=== PATIENT | male | born 2000 | race Caucasian/White ===

== ENCOUNTER 2022-02-26 08:50 | Emergency (ER) | payer OTHER, SELFPAY ==
[2022-02-26 09:02] VITALS: BP 131/71; PULSE 63; RESP 14; TEMP 37.1; O2SAT 100; BMI 24.3
--- NOTE | 2022-02-26 09:03 | ED.BACK ---
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 He does not remember any injury or strenuous activity. He says that he did start a new job of standing gait where he has to wear a vest most of the time. He denies any numbness or tingling down his legs. He is no abdominal pain no hematuria nausea or vomiting. He has tried naproxen little relief home. But he says it hurts every time he moves it is difficult for him to put his socks and shoes on. It pretty much stays in his left flank area. He denies any fever or chills. No other symptoms. Related Data Previous Rx's Medication Instructions Recorded cyclobenzaprine 10 mg tablet 10 mg PO TID PRN muscle spasm #10 02/26/22 tabs hydrocodone 5 mg-acetaminophen 325 1 tab PO Q6H PRN pain #10 tabs 02/26/22 mg tablet Allergies Allergy/AdvReac Type Severity Reaction Status Date / Time No Known Drug Allergies Allergy Verified 02/26/22 09:02 Review of Systems Review of Systems ROS Unobtainable: All systems reviewed & are unremarkable except as noted in HPI and below Patient History Social History Smoking Status: Never smoker Exam Initial Vital Signs Initial Vital Signs: Vital Signs Temperature 98.8 F 02/26/22 09:02 Pulse Rate 63 02/26/22 09:02 Respiratory Rate 14 02/26/22 09:02 Blood Pressure 131/71 02/26/22 09:02 Pulse Oximetry 100 02/26/22 09:02 Oxygen Delivery Method 02/26/22 09:02 GENERAL: Alert 21-year-old male and in no acute distress. HEENT: Head atraumatic,EOMI, pupils reactive, face symmetric, moist mucous membranes CARDIOVASCULAR: Regular rate and rhythm without murmurs, rubs or gallops. RESPIRATORY: Breath sounds equal bilaterally, no wheezes rales or rhonchi. ABDOMEN: Soft, nontender. Normoactive bowel sounds all 4 quadrants. No guarding or rebound. : left CVA tenderness EXTREMITIES: Normal range of motion, no clubbing or edema. Neurovascularly intact NEUROLOGICAL: Alert and oriented x4. Able to lift both legs from SKIN: Warm, dry, no laceration, no petechiae, no rashes or lesions. Course Orders Ordered: Discontinued Medications Cyclobenzaprine HCl (Cyclobenzaprine 10 Mg Tablet) 5 mg PO NOW ONE Stop: 02/26/22 09:09 Last Admin: 02/26/22 09:35 Dose: Not Given Documented By: ALLEN Cyclobenzaprine HCl (Cyclobenzaprine 10 Mg Tablet) 10 mg PO NOW ONE Stop: 02/26/22 09:35 Last Admin: 02/26/22 09:35 Dose: 10 mg Documented By: ALLEN Ketorolac Tromethamine (Ketorolac 30 Mg/Ml Vial) 30 mg IM NOW ONE Stop: 02/26/22 09:09 Last Admin: 02/26/22 09:34 Dose: 30 mg Documented By: ALLEN Vital Signs Vital signs: Vital Signs - 8 hr 02/26/22 09:02 Temperature 98.8 F Pulse Rate 63 Respiratory Rate 14 Blood Pressure 131/71 Pulse Oximetry 100 Oxygen Delivery Method Room Air MDM - Back Pain/Injury Lab Data Labs: Urine Dip Bedside Urine Glucose Negative Bedside Urine Bilirubin - Negative Bedside Urine Ketone - Negative Urine Specific [place] 1.020 Bedside Urine Occult Blood - Negative Bedside Urine pH 6.0 Bedside Urine Protein - Negative Bedside Urine Urobilinogen +/- 1mg Bedside Urine Nitrite - Negative Bedside Urine Leukocytes - Negative Esterase [facility] Narrative Medical decision making narrative: Patient 21-year-old male has left flank pain for the last 4 days. It is non radiating worse with movement. Likely musculoskeletal but possible kidney stone as well. Did not get any relief with naproxen alone. He is given Toradol and cyclobenzaprine here. He has no hematuria unlikely to be kidney stone especially without radiation and nausea. He has no red flag symptoms or risk factors to suggest other causes of back pain which include cauda equina, epidural abscess, dissection. Discharge Plan Departure Patient Disposition: Home Clinical Impression: Strain of lumbar region Instructions: DI for Back Spasm Activity Restrictions/Additional Instructions: *You have been diagnosed with back pain *What to do: At this time increase activity as tolerated light activities encourage no strenuous activity. Please talk to your PCP about will return to work *Continue to take medications as directed --> SENT TO [facility] [place] 1 tablet every 6 hours if needed for severe pain Continue naproxen as directed Flexeril 10 mg every 8 hours if needed for muscle spasm *Follow up with your primary care provider in 2-3 days or call [phone] *Return to ER if you should have increasing pain numbness tingling weakness loss of urine or stool or any new, worsening or concerning symptoms CONTROLLED SUBSTANCE DISCHARGE (Narcotoic/benzodiazepine/Flexeril/Phenergan) 1. You have been prescribed narcotic medications, it does have acetaminophen/Tylenol/paracetamol in it, DO NOT TAKE MORE THAN 4,00mg in 24 hours of Tylenol. TRAMADOL DOES NOT CONTAIN TYLENOL 2. Please understand that we cannot provide further refills of narcotics, benzodiazepines or controlled substances through the ED and her pain management will need to be through your provider. 3. While on these medications you cannot drive or operate heavy machinery. 4. You cannot sign legal documents or perform any duties such as this. 5. As long as you're taking opiate pain medications he should also be taking a stool softener such as Colace, Dulcolax, MiraLAX or prune juice, to help avoid constipation. Prescriptions: New cyclobenzaprine 10 mg tablet 10 mg PO TID PRN (Reason: muscle spasm) Qty: 10 0RF hydrocodone-acetaminophen 5-325 mg tablet 1 tab PO Q6H PRN (Reason: pain) Qty: 10 0RF Stand Alone Forms: Work Release Note Visit Report Forms: Patient Portal/API
[2022-02-26] MEDS: KETOROLAC 30 MG/ML VIAL IM (09:34)
[2022-02-26] MEDS: CYCLOBENZAPRINE 10 MG TABLET PO (09:35)
== END 2022-02-26 10:11 | disposition home or self-care (01) ==
PROVIDERS: Emergency Provider Emergency Medicine
DX: S39.012A Strain of muscle, fascia and tendon of lower back, initial encounter (principal)
CPT/HCPCS: 81003; 96372; 99283; J1885